=== PATIENT | female | born 1980 | race Caucasian/White ===

== ENCOUNTER 2019-07-15 07:33 | Observation (INO) | payer BC ==
[~2019-07-15] VITALS: Ht 165.1 cm; Wt 81.6 kg
--- OUTSIDE RECORDS SUMMARY | 2019-07-15 07:36 | XMS REPORT ---
[facility] Address Unknown Phone Unavailable Care Team Providers Care Gas System Operator Name Role Phone Unavailable Unavailable Payers Payer Name Policy Type Policy Number Effective Date Expiration Date Problems This patient has no known problems. Allergies, Adverse Reactions, Alerts Allergy Name Allergy Type Status Severity Reaction(s) Onset Date Inactive Date Treating Clinician Comments codeine DA Active MA 2018-06-12 00:00:00 codeine DA Active MA 2018-03-25 00:00:00 codeine DA Active MA 2013-03-04 00:00:00 Medications This patient has no known medications. Results Test Description Test Time Test Comments Text Results Atomic Results Result Comments UTERUS,OTHER THAN PROLAPSE/MISSY 2018-06-28 18:59:00 RUN DATE: 07/02/18 [facility] PAGE 1 RUN TIME: 857 Specimen Inquiry RUN USER: INTERFACE [facility] [id number] LOC: [facility] #: [id number] AGE/SX: 38/F ROOM: Replaced By [facility] RE06/27/18REG DR: Paris Bustamante MD : 78 BED: A DIS: 06/29/18 STATUS: DIS IN TLOC: SPEC #: [id number] RECD: 06/27/18-1254 STATUS: ALEXIA REQ #: [id number] FRAN: 06/27/18- SUBM DR: Paris Bustamante MD ENTERED: 06/27/18 SP TYPE: UTERUSOTH OTHR DR: ORDERED: LEVEL V SURGICA CODES: [id number] - UTERUS, NOS PROCEDURES: LEVEL V SURGICA (Incomplete) TISSUES: UTERUS, NOS - UTERUS, CERVIX AND FIBROID CLINICAL HISTORY 38 year old, uterine fibroids (wpd) FINAL DIAGNOSIS Uterus, cervix, fibroid: - cervix - mild chronic inflammation - endometrium - secretory phase - myometrium - leiomyomas, foci of adenomyosis - uterine serosa - fibrous adhesions Tissue code 1 CPT code(s): 98610 [facility]/wpd GROSS DESCRIPTION ANATOMIC SOURCE OF TISSUE (per Requisition): Uterus, cervix, fibroid The specimen is received in formalin in a container, labeled with the patient's name and designated "uterus, cervix, fibroid". It consists of a previous partially opened 14 x 11 x 10 cm uterine corpus, separate partial quarles, firm nodule measuring 10 x 9 x 6 cm and a separate cervix measuring 4 x 3 x 3 cm and aggregating to 854 gm. The serosa is quarles, smooth, and glistening and contains small, ill-defined, firm lesions measuring up to 1.0 cm, subserosal, firm nodules measuring up to 5 cm and red fibrous adhesions mostly in the mid to lower anterior wall. The cervical external os measures 0.6 cm. The portio vaginalis measures 3 cm. Senior Engineering Team Leader sections are submitted in A. The endometrium measures up to 0.2 cm and contains submucosal, firm nodules measuring up to 5 cm. The myometrium measures up to 5.5 cm and contains numerous CONTINUED ON NEXT PAGE RUN DATE: 07/02/18 [facility] PAGE 2 RUN TIME: 857 Specimen Inquiry RUN USER: INTERFACE SPEC #: [id number] PATIENT: MARIO LAUREANO N #[id number] (Continued) GROSS DESCRIPTION (Continued) additional quarles, white, firm nodules measuring up to 5.5 cm. No discrete degenerative change is noted in the separate portion of leiomyoma. Senior Engineering Team Leader sections are submitted in B - E. Bactest/wpd 06/27/18 @ 2863 MICROSCOPIC DESCRIPTION The cervix has a mild infiltrate of small lymphocytes and plasma cells. The endometrium is composed of evenly spaced tortuous glands with luminal secretions and cyt oplasmic vacuoles. The myometrium contains leiomyomas without atypia and foci of adenomyosis. The uterine serosa has fibrous adhesions. pkg/wpd Signed Lila Stone 06/28/18 1859 END OF REPORT
[2019-07-15] MEDS ORDERED: SODIUM CHLORIDE 0.9% 1000ML 1,000 ML IV STA (07:43)
[2019-07-15] MEDS ORDERED: ONDANSETRON HCL INJ 2MG/ML 2ML 2 MG/ML VIAL IV PRN (08:00)
[2019-07-15] MEDS ORDERED: MORPHINE SULFATE 2 MG/ML SYR 1ML IV PRN (08:00)
[2019-07-15] MEDS ORDERED: SODIUM CHLORIDE 0.9% 1000ML 1,000 ML IV SCH (08:00)
[2019-07-15 08:17] LABS: BASOPHILS # (AUTO) 0.1 (0.0-0.1); BASOPHILS % 0.5 % (0.0-1.0); EOSINOPHILS # (AUTO) 0.1 (0.0-0.4); EOSINOPHILS % 0.6 % (0.0-6.0); HEMATOCRIT 37.6 % (34.2-44.1); HEMOGLOBIN 13.2 g/dL (12.0-16.0); LYMPHOCYTES # (AUTO) 0.7 (1.0-3.2); LYMPHOCYTES % 5.5 % (18.0-39.1); MEAN CORPUSCULAR HEMOGLOBIN 29.4 pg (28-32); MEAN CORPUSCULAR HGB CONC 35.1 g/dL (31-35); MEAN CORPUSCULAR VOLUME 83.7 fL (81-99); MONOCYTES # (AUTO) 1.4 (0.2-0.8); MONOCYTES % 10.9 % (4.4-11.3); NEUTROPHILS # (AUTO) 10.3 (2.1-6.9); NEUTROPHILS % 81.2 % (38.7-80.0); PLATELET COUNT 188 x10e3/uL (140-360); RED BLOOD COUNT 4.49 x10e6/uL (3.6-5.1); RED CELL DISTRIBUTION WIDTH 13.5 % (11.7-14.4)
[2019-07-15 08:18] LABS: BILIRUBIN,URINE NEGATIVE (NEGATIVE); CLARITY,URINE CLEAR (CLEAR); COLOR,URINE YELLOW (YELLOW); KETONES,URINE NEGATIVE (NEGATIVE); LEUKOCYTE ESTERASE ,URINE TRACE (NEGATIVE); NITRITE,URINE NEGATIVE (NEGATIVE); PROTEIN,URINE DIPSTICK 1+ (NEGATIVE); URINE UROBILINOGEN 0.2 mg/dL (0.2 - 1)
[2019-07-15 08:28] LABS: BACTERIA,URINE RARE /HPF; EPITHELIAL CELLS,URINE FEW /LPF
[2019-07-15] MEDS ORDERED: MORPHINE SULFATE INJ 4 MG/ML INJ 1ML IV ONE (08:30)
[2019-07-15] MEDS ORDERED: ONDANSETRON HCL INJ 2MG/ML 2ML 2 MG/ML VIAL IV ONE (08:30)
[2019-07-15 08:36] LABS: ALANINE AMINOTRANSFERASE 20 IU/L (0-55); ALBUMIN 2.6 g/dL (3.5-5.0); ALBUMIN/GLOBULIN RATIO 0.7 (0.8-2.0); ALKALINE PHOSPHATASE 97 IU/L (40-150); ANION GAP 16.1 mmol/L (8-16); BLOOD UREA NITROGEN 7 mg/dL (7-26); BUN/CREATININE RATIO 8 (6-25); CALCIUM 8.9 mg/dL (8.4-10.2); CARBON DIOXIDE 19 mmol/L (22-29); CHLORIDE 102 mmol/L (98-107); CREATININE, SERUM 0.84 mg/dL (0.57-1.11); EST GLOMERULAR FILTRATION RATE > 60 ML/MIN (60-); GLUCOSE 104 mg/dL (74-118); POTASSIUM 3.1 mmol/L (3.5-5.1); SODIUM 134 mmol/L (136-145)
--- NOTE | 2019-07-15 08:47 | Diagnostic Imaging Report ---
Exam: KUB - 2 views Indication: Urinary calculus Comparison: None Findings: No radiographically apparent urinary calculus over the expected distribution of the kidneys or ureters. Nonobstructive bowel gas pattern. No free air. The osseous structures appear unremarkable. Impression: No radiographically apparent urinary calculus. Signed by: Deejay Farrar MD on 07/15/2019 8:43 AM
[2019-07-15] MEDS ORDERED: CEFTRIAXONE SOD 1 GM/NS 50 ML 50 ML IV SCH (09:00)
[2019-07-15] MEDS ORDERED: KCL 20MEQ/.9 SOD CHL 1,000 ML IV SCH (09:30)
[2019-07-15 09:44] VITALS: BP 140/88
[2019-07-15] MEDS ORDERED: KETOROLAC TROMETHAMINE 30 MG/ML VIAL IV ONE (10:00)
[2019-07-15] MEDS ORDERED: IOPAMIDOL 300MG/ML 50ML INFUS..BTL IV ONE (11:19)
[2019-07-15] MEDS ORDERED: B&O 60MG R/S 60 MG SUPP PR ONE (11:19)
[2019-07-15 12:40] VITALS: BP 111/76
--- NOTE | 2019-07-15 12:45 | NUR ---
PT TRANSPORTED TO OR VIA BED
--- NOTE | 2019-07-15 13:20 | NUR ---
RECD PT FROM OR VIA BED ,DENIES PAIN ,NO DISTRESS NTOED.
--- NOTE | 2019-07-15 13:20 | NUR ---
RECD PT FROM ER VIA STRETCHER AAOXSantiago,C/O LT FLANK PAIN MEDICATED. Addendum: 07/15/19 at 1334 by Khalida Pan LVN PT ARRIVED FROM ER [id number]
[2019-07-15] MEDS ORDERED: TYLENOL WITH C1 EACH PO (14:59)
[2019-07-15] MEDS ORDERED: CEFTIN PO (15:00)
[2019-07-15] MEDS ORDERED: DITROPAN XL5 MG PO (15:01)
[2019-07-15] MEDS ORDERED: OXYBUTYNIN CHLORIDE 5 MG TAB PO SCH (17:00)
[2019-07-15] MEDS ORDERED: PHENAZOPYRIDINE HCL 100 MG TAB PO SCH (18:00)
[2019-07-15] MEDS ORDERED: LIDOCAINE HCL 2% LOCAL INJ 5 ML SDV VIAL INJ ONE (18:18)
[2019-07-15] MEDS ORDERED: SEVOFLURANE INHAL SOLN 250 ML PEN BTL ONE (18:18)
[2019-07-15] MEDS ORDERED: DEXAMETHASONE SOD PHOS INJ 4 MG/ML VIAL ONE (18:18)
[2019-07-15] MEDS ORDERED: ONDANSETRON HCL INJ 2MG/ML 2ML 2 MG/ML VIAL ONE (18:18)
[2019-07-15] MEDS ORDERED: PROPOFOL IV EMULSION 10 MG/ML 20 ML VIAL ONE (18:18)
[2019-07-15] MEDS ORDERED: FENTANYL CITRATE/PF 100MCG/2 ML INJ ONE (19:23)
[2019-07-15] MEDS ORDERED: MIDAZOLAM HCL 2 MG/2 ML VIAL ONE (19:23)
--- NOTE | 2019-08-25 03:25 | History and Physical ---
This patient came into the hospital for apparent stone. The patient had left urethroscopy and stent procedure placed. This was done and the patient was discharged, but the patient was not seen by me at any point in time, so no history and physical was taken. MD CASANDRA BroussardJ/MODL /[id number]
--- NOTE | 2019-08-25 19:50 | Discharge Summary ---
This patient was discharged after a left ureteroscopy and stent was done by Dr. Mackenzie. The patient was not seen by me at any point of time. Discharge summary will state stone and status post stent. MD WALDO Broussard/MODL /[id number]
--- NOTE | 2019-09-02 06:43 | Operative Report ---
DATE OF PROCEDURE: 07/15/2019 SURGEON: Hipolito Mackenzie MD PREOPERATIVE DIAGNOSES: 1. Left nephrolithiasis. 2. Microscopic hematuria. POSTOPERATIVE DIAGNOSES: 1. Left nephrolithiasis. 2. Microscopic hematuria. 3. Grade 2 cystocele. 4. Urethral hypermobility. OPERATIONS PERFORMED: 1. Cystourethroscopy with bilateral ureteral catheterization and retrograde ureteropyelography (separate procedure performed for the microhematuria). 2. Interpretation of retrograde ureteropyelography. 3. Supervision of fluoroscopy, no radiologist present. 4. Left ureteroscopy with stone fragmentation and extraction (separate procedure performed for the nephrolithiasis). 5. Cystourethroscopy with insertion of left indwelling ureteral stent. 6. Pelvic examination under anesthesia. ANESTHESIA: General. COMPLICATIONS: None. CLINICAL SUMMARY: Mariely Cutler is a 39-year-old woman with left renal colic. She had a left ureterolithiasis with hydronephrosis and is brought to the operating room for management. She is aware of the risks of bleeding, infection, injury to adjacent structures, need for additional procedures and elected to proceed. OPERATIVE PROCEDURE IN DETAIL: Informed consent was verified, Mariely Cutler was properly identified, taken to the operating room, placed on the cystoscopy table in supine position. Anesthesia was uneventfully begun. The patient was then carefully gently repositioned in the dorsal lithotomy position with all pressure points well padded. Her genitalia were prepared and draped in usual sterile fashion. The cystoscope sheath with the visual obturator in place was atraumatically inserted and the patient's urethra and bladder were drained. Panendoscopy revealed grade 1-2 trabeculations, no tumors, no stones, no suspicious lesions. Normally positioned and configured ureteral orifices were identified. The ureteral catheter was used to cannulate the right ureter and retrograde ureteropyelograms were performed. It was then inserted into the left ureter and retrograde ureteropyelograms were performed. The guidewire was then placed into the left ureter and guided to the level of the patient's kidney. The flexible ureteroscope was then placed over the guidewire and guided to the level of the patient's kidney. Panendoscopy revealed Daniel's plaques, but no suspicious lesions, no tumors, and a stone was identified. The stone was grasped with a Nitinol tipless basket and it was fragmented. The fragments were then extracted atraumatically. With cystoscopic fluoroscopic guidance, a left-sided indwelling ureteral stent was then placed. It was coiled in the patient's kidney as well as the patient's bladder. The retaining suture was cut short. Interpretation of retrograde ureteropyelography contrast was instilled in retrograde fashion bilaterally. The right side exhibited no hydronephrosis. No suspicious lesions. The left side did not exhibit the ureteral stone that we knew about from before. The stent was in good position, coiled the patient's kidney as well as the patient's bladder at the end of the case. The patient's bladder was drained. Cystoscope was withdrawn. Pelvic examination revealed a grade 2 cystocele with urethral hypermobility. No abnormal palpable pelvic masses could be appreciated. There were no obvious mucosal lesions. The patient was then uneventfully reversed from anesthesia and taken to recovery room in stable condition. Plans will be to ensure the patient's pain is adequately controlled and when it does, she will be discharged home. We will plan to return the patient to the operating room in several weeks to remove her stent and evaluate and manage any potentially remaining stones. MD LORIE Elam/KENN /[id number]
== END 2019-07-15 15:18 | disposition home or self-care (01) ==
LOC: ER 07:33 → ERHOLD 08:06 → MED/SURG3 09:30
PROVIDERS: ADMIT Family Medicine; ATTEND Family Medicine
DX: N13.2 Hydronephrosis with renal and ureteral calculous obstruction (principal); N30.01 Acute cystitis with hematuria; N81.10 Cystocele, unspecified; N36.41 Hypermobility of urethra
CPT/HCPCS: 36415; 52332; 52352; 74018; 74420; 80053; 81001; 85025; 87040; 87086; 87186; 88300; 99284; C1758; C2617; G0378; J0696; J1100; J1885; J2001; J2250; J2270; J2405; J2704; J3010; J7030; Q9967; C1769